=== PATIENT | female | born 1950 | race Caucasian/White ===

== ENCOUNTER → 2021-01-09 11:12 | Outpatient (CLI) | payer MEDICARE, SELFPAY ==
--- NOTE | 2021-01-09 | DI.US.S_ITS ---
PROCEDURE: US THYROID INDICATIONS: THYROID NODULE TECHNIQUE: Real-time scanning was performed of the thyroid gland, with image documentation. COMPARISON: None. FINDINGS: Right: Thyroid lobe measures 5.0 x 1.6 x 1.4 cm, and is homogeneous in echotexture. Colloid cyst measuring 5 mm. Left: Thyroid lobe measures 6.0 x 1.4 x 1.5 cm, and is homogenous in echotexture. Isthmus: 3.3 mm thick. Nodule number: 1 Location: Right superior Size: 0.6 x 0.2 x 0.5 cm. Composition: Spongiform Echogenicity: Predominantly anechoic Shape: wider than tall. Margins: Smooth Echogenic foci: None Total points: 0 ACR TI-RADS category: Benign IMPRESSION: Left colloid cyst and non suspicious right thyroid nodule. No follow-up is warranted. ACR TI-RADS definitions and recommendations: TI-RADS 1 (benign): 0 points. FNA not needed. TI-RADS 2 (not suspicious): 2 points. FNA not needed. TI-RADS 3 (mildly suspicious): 3 points. * FNA if 2.5 cm or larger, follow up if 1.5 cm or larger (at 1, 3, and 5 years). TI-RADS 4 (moderately suspicious): 4-6 points. * FNA if 1.5 cm or larger, follow up if 1 cm or larger (at 1, 2, 3, and 5 years). TI-RADS 5 (highly suspicious): 7 points or more. * FNA if 1 cm or larger, follow up if 0.5 cm or larger (every year for 5 years). Dictated by: Nestor Paz Christina Interpreted: Smith Shipley MD on 01/09/2021 at 11:57 Transcribed by: CATHLEEN on 01/09/2021 at 11:59 Approved by: Smith Shipley M.D. on 01/09/2021 at 16:43
== END ==
PROVIDERS: PCP Internal Medicine; Referring Provider Internal Medicine; Visit Provider Internal Medicine
DX: E04.1 Nontoxic single thyroid nodule (principal)
CPT/HCPCS: 76536

== ENCOUNTER 2021-08-05 14:55 | Observation (INO) | payer MEDICARE, SELFPAY ==
[2021-08-05] VITALS (26 sets, daily range): BP systolic 118–196; BP diastolic 65–91; PULSE 59–79; RESP 14–26; TEMP 36.8–36.9; O2SAT 95–100; BMI 31.6
--- NOTE | 2021-08-05 15:12 | DI.RAD.S_ITS ---
PROCEDURE: XR CHEST 1V INDICATIONS: chest pain TECHNIQUE: One view of the chest was acquired. COMPARISON: None. FINDINGS: Surgical changes and devices: None. Lungs and pleura: On this semiupright portable chest examination, no large pneumothorax or large pleural effusions are seen. No focal infiltrates are seen. Mediastinum: Mediastinal contours appear normal. Heart size is normal. Bones and chest wall: No suspicious bony lesions. Age-appropriate bony degenerative changes are seen. Overlying soft tissues appear unremarkable. IMPRESSION: Unremarkable portable chest for age. Dictated by: Cl Godwin M.D. on 08/05/2021 at 14:43 Approved by: Cl Godwin M.D. on 08/05/2021 at 14:43
[2021-08-05 16:14] LABS: Add Manual Diff / Slide Review NO; Basophils Absolute Auto 0 /uL (0-100); Basophils Percent Auto 0.5 % (0-2); Eosinophils Absolute Auto 100 /uL (0-450); Eosinophils Percent Auto 1.4 % (2-4); Hematocrit 37.5 % (36-46); Hemoglobin 12.8 g/dL (12.0-16.0); Lymphocytes Absolute Auto 1800 /uL (1100-4500); Lymphocytes Percent Auto 24.3 % (25-40); Mean Corpuscular HGB Conc 34.2 % (30-36); Mean Corpuscular Hemoglobin 31.7 PG (26-34); Mean Corpuscular Volume 92.7 fL (80-100); Monocytes Absolute Auto 600 /uL (0-900); Monocytes Percent Auto 7.8 % (3-14); Neutrophils Absolute Auto 5000 /uL (1500-7000); Platelet Count 211 X10^3/uL (150-400); Red Blood Cell Count 4.04 X10^6/uL (4.0-5.2); Red Cell Distribution Width 12.7 % (11.6-14.8); White Blood Cell Count 7.5 X10^3/uL (4.5-11.0)
[2021-08-05 16:24] LABS: Alanine Aminotransferase 19 IU/L (<35); Albumin 4.2 g/dL (3.5-5.0); Albumin Globulin Ratio 1.3 (1.0-2.8); Alkaline Phosphatase 75 U/L (38-126); Aspartate Aminotransferase 24 IU/L (14-36); BUN Creatinine Ratio 21.3 (6-22); Bilirubin Total 0.4 mg/dL (0.2-1.3); Blood Urea Nitrogen 16 mg/dL (7-17); Carbon Dioxide 30 mmol/L (22-32); Chloride 105 mmol/L (98-107); Creatine Kinase 63 U/L (30-135); Estimated Glomerular Filt Rate > 60.0 mL/min (>60); Globulin 3.2 g/dL (1.7-4.1); Glucose 114 mg/dL (80-110); HEMOLYSIS < 15 (0-50); Lipase 48 U/L (23-300); Magnesium 2.1 mg/dL (1.6-2.3); Potassium 3.5 mmol/L (3.4-5.1); Sodium 140 mmol/L (137-145); Total Protein 7.4 g/dL (6.3-8.2)
[2021-08-05 16:35] LABS: Troponin I < 0.012 ng/mL (0.01-0.034)
--- NOTE | 2021-08-05 17:20 | ED_ITS ---
HPI - Chest Pain General Chief Complaint: Chest Pain Stated Complaint: Chest Pain Time Seen by Provider: 08/05/21 17:20 Source: patient Mode of arrival: Wheelchair Limitations: no limitations Limitations: no limitations Review of Systems Review of Systems ROS Unobtainable: All systems reviewed & are unremarkable except as noted in HPI and below Patient History Social History Smoking Status: Former smoker (Stopped when she was 29yo) Smoking Status: Former smoker (Stopped when she was 29yo) alcohol intake frequency: 0-2 drinks per day Substance Use Type: marijuana Exam Initial Vital Signs Initial Vital Signs: Vital Signs Temperature 98.2 F 08/05/21 15:00 Pulse Rate 79 08/05/21 15:00 Respiratory Rate 20 08/05/21 15:00 Blood Pressure 163/87 H 08/05/21 15:00 Pulse Oximetry 99 08/05/21 15:00 Course Orders Ordered: ED Orders 08/05/21 15:12 XR chest 1V Stat EKG-12 Lead Stat 08/05/21 16:03 Complete Blood Count AUTO DIFF Stat Comprehensive Metabolic Panel Stat Lipase Stat Magnesium Stat Troponin & CK Cardiac Panel Stat Vital Signs Vital signs: Vital Signs - 8 hr 08/05/21 15:00 08/05/21 15:50 Temperature 98.2 F Pulse Rate 79 67 Respiratory Rate 20 24 Blood Pressure 163/87 H Pulse Oximetry 99 100 MDM - Chest Pain Lab Data Result diagrams: 08/05/21 16:03 08/05/21 16:03 Labs: Lab Results 08/05/21 08/05/21 Range/Units 16:03 16:03 WBC 7.5 (4.5-11.0) X10^3/uL RBC 4.04 (4.0-5.2) X10^6/uL Hgb 12.8 (12.0-16.0) g/dL Hct 37.5 (36-46) % MCV 92.7 (80-100) fL MCH 31.7 (26-34) PG MCHC 34.2 (30-36) % RDW 12.7 (11.6-14.8) % Plt Count 211 (150-400) X10^3/uL Neut % (Auto) 66.0 (50-75) % Lymph % (Auto) 24.3 L (25-40) % [place] % (Auto) 7.8 (3-14) % Eos % (Auto) 1.4 L (2-4) % Baso % (Auto) 0.5 (0-2) % Neut # (Auto) 5000 (3290-3006) /uL Lymph # (Auto) 1800 (2268-5884) /uL [place] # (Auto) 600 (0-900) /uL Eos # (Auto) 100 (0-450) /uL Baso # (Auto) 0 (0-100) /uL Sodium 140 (137-145) mmol/L Potassium 3.5 (3.4-5.1) mmol/L Chloride 105 (98-107) mmol/L Carbon Dioxide 30 (22-32) mmol/L BUN 16 (7-17) mg/dL Creatinine 0.75 (0.52-1.04) mg/dL Estimated GFR > 60.0 (>60) mL/min BUN/Creatinine Ratio 21.3 (6-22) Glucose 114 H (80-110) mg/dL Calcium 9.0 (8.4-10.2) mg/dL Magnesium 2.1 (1.6-2.3) mg/dL Total Bilirubin 0.4 (0.2-1.3) mg/dL AST 24 (14-36) IU/L ALT 19 (<35) IU/L Alkaline Phosphatase 75 (38-126) U/L Total Creatine Kinase 63 (30-135) U/L CK-MB (CK-2) TNP CK-MB (CK-2) Rel Index TNP Troponin I < 0.012 (0.01-0.034) ng/mL Total Protein 7.4 (6.3-8.2) g/dL Albumin 4.2 (3.5-5.0) g/dL Globulin 3.2 (1.7-4.1) g/dL Albumin/Globulin Ratio 1.3 (1.0-2.8) Lipase 48 (23-300) U/L Imaging Data Chest x-ray: Radiologist's Impression: Launch?[address] [address] XRay Report Signed Patient: Bonny Garcia MR#: [id number] : 1950 Acct:[id number] Age/Sex: 71 / F Date of Service: 08/05/21 Loc: ED Accession Number: [id number] ?? Procedure: XR chest 1V Ordering Provider: Pam Camara D.O. PROCEDURE:? XR CHEST 1V ? INDICATIONS:? chest pain ? TECHNIQUE:? One view of the chest was acquired.? ? COMPARISON:? None. ? FINDINGS:? ? Surgical changes and devices:? None.? ? Lungs and pleura:? On this semiupright portable chest examination, no large pneumothorax or large pleural effusions are seen.? No focal infiltrates are seen.? ? Mediastinum:? Mediastinal contours appear normal.? Heart size is normal.? ? Bones and chest wall:? No suspicious bony lesions.? Age-appropriate bony degenerative changes are seen.? Overlying soft tissues appear unremarkable.? ? ? IMPRESSION:? Unremarkable portable chest for age. ? ? Dictated by: Cl Godwin M.D. on 08/05/2021 at 14:43 ? ? Approved by: Cl Godwin M.D. on 08/05/2021 at 14:43?? ECG Data Attestation: I personally reviewed and interpreted this ECG as follows: Prior ECG tracings: not available for review Interpretation: Sinus rhythm with sinus arrhythmia. Incomplete right bundle-branch. Rate of 60 2p are 132 QRS of 98 QTC of 426. Nonspecific change. No priors for comparison. Discharge Plan Departure Referrals: Archana Manning MD [Primary Care Provider] -
--- NOTE | 2021-08-05 18:02 | ED.CHESTPAIN ---
HPI - Chest Pain General Chief Complaint: Chest Pain Stated Complaint: Chest Pain Time Seen by Provider: 08/05/21 17:20 Source: patient Mode of arrival: Wheelchair Limitations: no limitations History of Present Illness HPI narrative: Patient is a 71-year-old female with history of GERD and un treated hyperlipidemia presenting today with chest discomfort. She noticed yesterday she said it was pretty constant all day yesterday she took her normal acid reflux medication but it did not seem to help. It starts kind of on the left side of her chest and radiates to her left shoulder. It does hurt to take a deep breath at times. However it happens with out taking deep breaths as well. She does have 40 area on her chest that is reproducible to palpation however she says that is not always the pain that she feels. This morning she got up to take the dog for a walk hand was so uncomfortable she had to stop. Her symptoms were relieved completely with. She did to get aspirin through the car prior to arrival. She is comfortable stating that her pain is a 1 currently in the emergency department. She has no prior history of coronary artery disease or hypertension. Her family history both mom and dad had congestive heart failure but no coronary artery disease at young age Related Data Allergies Allergy/AdvReac Type Severity Reaction Status Date / Time No Known Drug Allergies Allergy Verified 08/05/21 20:48 Review of Systems Review of Systems Narrative: GENERAL: Denies chills, fatigue, malaise, fever, sweats, travel HEENT: Denies sinus pain, ear pain, sore throat, difficulty swallowing, neck pain RESPIRATORY: Denies dyspnea, cough, wheezing, hemoptysis, sputum. CARDIOVASCULAR: See HPI GASTROINTESTINAL: Denies nausea, vomiting, abdominal pain, diarrhea, constipation, melena. : Denies dysuria, frequency, incontinence, hematuria, urinary retention, flank pain. MUSCULOSKELETAL: Denies weakness, joint pain, or bony pain SKIN: No rash, no erythema, no pruritus NEUROLOGIC: Denies weakness, dizziness, headache, numbness, change in speech, confusion PSYCHIATRIC: No concerning psychosocial issues. 12 point review of systems is negative except for those stated above and HPI Patient History Social History household members: spouse Smoking Status: Never smoker alcohol intake: former Smoking Status: Never smoker alcohol intake frequency: 0-2 drinks per day Substance Use Type: marijuana Exam Initial Vital Signs Initial Vital Signs: Vital Signs Temperature 98.2 F 08/05/21 15:00 Pulse Rate 79 08/05/21 15:00 Respiratory Rate 20 08/05/21 15:00 Blood Pressure 163/87 H 08/05/21 15:00 Pulse Oximetry 99 08/05/21 15:00 GENERAL: Alert 71-year-old man and in no acute distress. HEENT: Head atraumatic,EOMI, pupils reactive, face symmetric, [moist] mucous membranes CARDIOVASCULAR: Regular rate and rhythm without murmurs, rubs or gallops. RESPIRATORY: Breath sounds equal bilaterally, no wheezes rales or rhonchi. ABDOMEN: Soft, nontender. Normoactive bowel sounds all 4 quadrants. No guarding or rebound. EXTREMITIES: Normal range of motion, no clubbing or edema. Neurovascularly intact NEUROLOGICAL: Alert and oriented x4.Normal gait and speech. SKIN: Warm, dry, no laceration, no petechiae, no rashes or lesions. Scores HEART Score Heart Score history: Highly Suspicious Heart Score EKG: Normal Heart Score Age: > or = 65 years old Heart Score risk factors: 1-2 risk factors Heart Score troponin: < or = to normal limit Heart Score Total: 5 Course Orders Ordered: ED Orders 08/05/21 16:03 Complete Blood Count AUTO DIFF Stat Comprehensive Metabolic Panel Stat Lipase Stat Magnesium Stat Troponin & CK Cardiac Panel Stat 08/05/21 17:42 COVID19 -Nasal swab/Pre-Proc Stat 08/05/21 18:15 Trop I [Troponin I] Stat 08/05/21 18:16 EKG-12 Lead Stat Acetaminophen (Acetaminophen 325 Mg Tablet) 650 mg PO Q6HR PRN PRN Reason: Fever/Mild Pain (1-3) Aspirin (Aspirin Ec 81 Mg Tablet) 81 mg PO DAILY [facility] Calcium Carbonate (Calcium Carbonate 500 Mg Tab) 1,000 mg PO Q4HR PRN PRN Reason: Dyspepsia Enoxaparin Sodium (Enoxaparin 40 Mg/0.4 Ml Syringe) 40 mg SUBCUT DAILY [facility] Morphine Sulfate (Morphine 2 Mg/Ml Inj) 2 mg IV Q5MIN PRN PRN Reason: Chest Pain Naloxone HCl (Naloxone 0.4 Mg/Ml Vial) 0.2 mg IV Q2MIN PRN PRN Reason: Opiate Reversal Nitroglycerin (Nitroglycerin 0.4 Mg Sl Tab) 0.4 mg SL [id number] PRN PRN Reason: Chest Pain Ondansetron HCl (Ondansetron 4 Mg/2 Ml Inj) 4 mg IV Q8HR PRN PRN Reason: Nausea And Vomiting Discontinued Medications Ketorolac Tromethamine (Ketorolac 30 Mg/Ml Vial) 15 mg IV NOW ONE Stop: 08/05/21 18:15 Last Admin: 08/05/21 18:21 Dose: 15 mg Documented by: PERRY Nitroglycerin (Nitroglycerin 0.4 Mg Sl Tab) 0.4 mg SL NOW ONE Stop: 08/05/21 18:15 Last Admin: 08/05/21 18:22 Dose: 0.4 mg Documented by: PERRY Vital Signs Vital signs: Vital Signs - 8 hr 08/05/21 16:38 08/05/21 16:40 08/05/21 17:00 Pulse Rate 68 63 63 Respiratory Rate 14 26 H Blood Pressure 154/77 H 161/85 H Pulse Oximetry 100 95 08/05/21 17:30 08/05/21 17:31 08/05/21 17:40 Pulse Rate 60 60 60 Respiratory Rate 14 14 17 Blood Pressure 196/87 H 137/72 Pulse Oximetry 97 97 97 08/05/21 17:50 08/05/21 18:00 08/05/21 18:10 Pulse Rate 62 70 66 Respiratory Rate 23 24 18 Blood Pressure 138/85 125/76 181/86 H Pulse Oximetry 96 97 100 08/05/21 18:20 08/05/21 18:22 08/05/21 18:30 Pulse Rate 59 L 62 72 Respiratory Rate 14 24 Blood Pressure 172/76 H 173/76 H 155/72 H Pulse Oximetry 100 97 08/05/21 18:41 08/05/21 18:50 08/05/21 19:38 Pulse Rate 64 67 67 Respiratory Rate 16 24 Blood Pressure 132/65 131/70 Pulse Oximetry 96 98 08/05/21 19:39 08/05/21 19:40 08/05/21 19:50 Pulse Rate 64 59 L 64 Respiratory Rate 19 Blood Pressure 149/77 H 153/73 H 153/81 H Pulse Oximetry 99 100 100 08/05/21 20:00 Pulse Rate 65 Respiratory Rate 22 Blood Pressure 164/91 H Pulse Oximetry 100 MDM - Chest Pain Lab Data Result diagrams: 08/05/21 16:03 08/05/21 16:03 Labs: Lab Results 08/05/21 08/05/21 08/05/21 Range/Units 16:03 16:03 17:42 WBC 7.5 (4.5-11.0) X10^3/uL RBC 4.04 (4.0-5.2) X10^6/uL Hgb 12.8 (12.0-16.0) g/dL Hct 37.5 (36-46) % MCV 92.7 (80-100) fL MCH 31.7 (26-34) PG MCHC 34.2 (30-36) % RDW 12.7 (11.6-14.8) % Plt Count 211 (150-400) X10^3/uL Neut % (Auto) 66.0 (50-75) % Lymph % (Auto) 24.3 L (25-40) % [place] % (Auto) 7.8 (3-14) % Eos % (Auto) 1.4 L (2-4) % Baso % (Auto) 0.5 (0-2) % Neut # (Auto) 5000 (6383-4915) /uL Lymph # (Auto) 1800 (7967-8960) /uL [place] # (Auto) 600 (0-900) /uL Eos # (Auto) 100 (0-450) /uL Baso # (Auto) 0 (0-100) /uL Sodium 140 (137-145) mmol/L Potassium 3.5 (3.4-5.1) mmol/L Chloride 105 (98-107) mmol/L Carbon Dioxide 30 (22-32) mmol/L BUN 16 (7-17) mg/dL Creatinine 0.75 (0.52-1.04) mg/dL Estimated GFR > 60.0 (>60) mL/min BUN/Creatinine Ratio 21.3 (6-22) Glucose 114 H (80-110) mg/dL Calcium 9.0 (8.4-10.2) mg/dL Magnesium 2.1 (1.6-2.3) mg/dL Total Bilirubin 0.4 (0.2-1.3) mg/dL AST 24 (14-36) IU/L ALT 19 (<35) IU/L Alkaline Phosphatase 75 (38-126) U/L Total Creatine Kinase 63 (30-135) U/L CK-MB (CK-2) TNP CK-MB (CK-2) Rel Index TNP Troponin I < 0.012 (0.01-0.034) ng/mL Total Protein 7.4 (6.3-8.2) g/dL Albumin 4.2 (3.5-5.0) g/dL Globulin 3.2 (1.7-4.1) g/dL Albumin/Globulin Ratio 1.3 (1.0-2.8) Lipase 48 (23-300) U/L SARS-CoV-2 (PCR) Negative (Negative) 08/05/21 Range/Units 18:15 WBC (4.5-11.0) X10^3/uL RBC (4.0-5.2) X10^6/uL Hgb (12.0-16.0) g/dL Hct (36-46) % MCV (80-100) fL MCH (26-34) PG MCHC (30-36) % RDW (11.6-14.8) % Plt Count (150-400) X10^3/uL Neut % (Auto) (50-75) % Lymph % (Auto) (25-40) % [place] % (Auto) (3-14) % Eos % (Auto) (2-4) % Baso % (Auto) (0-2) % Neut # (Auto) (3108-5999) /uL Lymph # (Auto) (4886-3956) /uL [place] # (Auto) (0-900) /uL Eos # (Auto) (0-450) /uL Baso # (Auto) (0-100) /uL Sodium (137-145) mmol/L Potassium (3.4-5.1) mmol/L Chloride (98-107) mmol/L Carbon Dioxide (22-32) mmol/L BUN (7-17) mg/dL Creatinine (0.52-1.04) mg/dL Estimated GFR (>60) mL/min BUN/Creatinine Ratio (6-22) Glucose (80-110) mg/dL Calcium (8.4-10.2) mg/dL Magnesium (1.6-2.3) mg/dL Total Bilirubin (0.2-1.3) mg/dL AST (14-36) IU/L ALT (<35) IU/L Alkaline Phosphatase (38-126) U/L Total Creatine Kinase (30-135) U/L CK-MB (CK-2) CK-MB (CK-2) Rel Index Troponin I < 0.012 (0.01-0.034) ng/mL Total Protein (6.3-8.2) g/dL Albumin (3.5-5.0) g/dL Globulin (1.7-4.1) g/dL Albumin/Globulin Ratio (1.0-2.8) Lipase (23-300) U/L SARS-CoV-2 (PCR) (Negative) Imaging Data Chest x-ray: Radiologist's Impression: PROCEDURE:? XR CHEST 1V ? INDICATIONS:? chest pain ? TECHNIQUE:? One view of the chest was acquired.? ? COMPARISON:? None. ? FINDINGS:? ? Surgical changes and devices:? None.? ? Lungs and pleura:? On this semiupright portable chest examination, no large pneumothorax or large pleural effusions are seen.? No focal infiltrates are seen.? ? Mediastinum:? Mediastinal contours appear normal.? Heart size is normal.? ? Bones and chest wall:? No suspicious bony lesions.? Age-appropriate bony degenerative changes are seen.? Overlying soft tissues appear unremarkable.? ? ? IMPRESSION:? Unremarkable portable chest for age. ? ? Dictated by: Cl Godwin M.D. on 08/05/2021 at 14:43 ? ? Approved by: Cl Godwin M.D. on 08/05/2021 at 14:43 ? ECG Data Interpretation: Normal sinus rhythm rate 62 OR interval 132 QRS [address] changes but T-wave inversion noted in lead 3 only no priors to compare EKG 2. Sinus rhythm rate 60 persistent T-wave inversion noted in lead [address] changes MDM Narrative Medical decision making narrative: Patient's symptoms is of worsening chest discomfort with exertion are concerning for cardiac a. Some of it does seem musculoskeletal however this is not all of her pain. She has 2- troponins EKGs that do show a T-wave inversion out priors to compare. Patient got up to use the restroom she can experience chest discomfort all across her epigastric area is and up into her chest which resolved with rest. She was given nitroglycerin she took aspirin prior to arrival gave her Toradol possible musculoskeletal issue as well. Calin Verduzco is updated on symptoms test results and agrees with observation Discharge Plan Departure Patient Disposition: Admitted as Observation Clinical Impression: Chest pain Admit Date/Time: 08/05/21 20:03 Admit Provider: Kirsten Layton
[2021-08-05 18:05] LABS: COVID19 -Nasal RAPID Negative (Negative)
[2021-08-05] MEDS: KETOROLAC 30 MG/ML VIAL 15 MG IV (18:21)
[2021-08-05] MEDS: NITROGLYCERIN 0.4 MG SL TAB SL (18:22)
[2021-08-05 18:54] LABS: Troponin I < 0.012 ng/mL (0.01-0.034)
[2021-08-06 00:35] VITALS: O2SAT 98
[2021-08-06 04:00] VITALS: O2SAT 98
[2021-08-06 05:40] VITALS: O2SAT 99
--- NOTE | 2021-08-06 05:49 | PM.HP.1 ---
History of Present Illness History of Present Illness Date Patient Seen: 08/05/21 Time Patient Seen: 20:43 Chief complaint: Chest Pain, Sent from [facility] Narrative: Bonny Garcia is a 71-year-old female? with history of GERD and un-treated hyperlipidemia presented to the ED with chest pain.?Patient had chest pain constant all day yesterday, without improvement from acid reflux medication. Started 2 days ago on the left side of her chest as a pressure, occansional dizziness, LEVINE, swelling of the left foot and pain radiating to her left shoulder.? It worsens with deep breath at times.? Her chest pain is reproducible to palpation occansionally. The chest pressure became intolerable during her regular morning walk, forcing her to stop, at which point CP was relieved with rest.? In the ED her pain was 1/10, and she was hemodynamically stable. Patient denies prior history of cardiac disease, coronary artery disease or hypertension.? Both parents had congestive heart failure but no coronary artery disease at young age. Upon admit patient currently denies chest pain, shortness of breath, abdominal pain, nausea, vomiting, diarrhea, chills, fever, body aches, cough, respiratory symptoms, weakness, numbness, tingling, headache, changes in vision, recent illness injury or trauma. Patient was experiencing minor dizziness with positional changes. Though at the time admit interview patient was walking around her room comfortably, stable and in no distress. Upon admit patient's vitals she was afebrile, mildly hypertensive without a diagnosis of hypertension 164/91, HR 65, R 22, O2 saturation 100%. Patient's entire blood work was within normal limits to include CBC CMP liver panel, troponin x2 were within normal limits, patient's chest x-ray demonstrated no acute cardiopulmonary processes, patient's EKG demonstrated normal sinus rhythm with a rate of 62 with sinus arrhythmia, incomplete right bundle tejal block-I personally reviewed EKG, patient had a heart score: 4. Patient admitted for chest pain rule out and risk stratification. Patient History Medical History (Updated 08/06/21 @ 06:03 by DARLINE Quintanilla) Melanoma Osteopenia Surgical History (Updated 08/06/21 @ 06:03 by DARLINE Quintanilla) History of tonsillectomy Family & Social History Family History Mother Congestive heart failure Father Congestive heart failure Social History: household members spouse Prior Living Arrangements House Safety & Behavioral: Feels Safe in Current Yes Environment Been Physically Hurt or No Threatened By a Person Suicidal Ideation Description None Suicide Plan Description No Plan Tobacco & Substance use: Smoking Status Never smoker alcohol intake former alcohol intake frequency 0-2 drinks per day Substance Use Type marijuana Meds Home Medications and Allergies Allergies Allergy/AdvReac Type Severity Reaction Status Date / Time No Known Drug Allergies Allergy Verified 08/05/21 20:48 Review of Systems Review of Systems Narrative: All 12 point systems reviewed with the patient and are negative except otherwise documented. Exam Vital Signs (past 8 hours): - 08/05/21 22:37 08/05/21 23:10 08/06/21 00:35 Pulse Rate 64 Pulse Rate [Orthostatic Lying] 60 Pulse Rate [Orthostatic Sitting] 61 Pulse Rate [Orthostatic Standing] 71 Respiratory Rate 16 Blood Pressure [Orthostatic Lying] 139/76 Blood Pressure [Orthostatic Sitting] 123/68 Blood Pressure [Orthostatic Standing] 118/69 Pulse Oximetry 98 98 Oxygen Delivery Method Room Air Oxygen Flow Rate 0 Narrative Exam Narrative: General: Patient is a well-developed, well-nourished in no distress at this time. HEENT: Normocephalic, atraumatic, extraocular muscles intact, oral pharynx is clear and mucous membranes are moist. Neck is supple and symmetric, trachea is midline, no adenopathy, no thyroid enlargement, nontender, no masses palpated. Negative for JVD Chest: Normal AP diameter and contour without kyphoscoliosis, no nasal flaring, retractions, or tachypneic labored Lungs: Auscultation of all lung kim are clear without adventitious sounds, wheezes, rhonchi, or rales. Cardio: S1 & S2 with regular rate and rhythm without murmur, rubs, or gallops, no carotid bruit, no cardiac pulsations present. Abdomen: Soft nontender, negative for organomegaly, or masses. Bowel sounds are present in all 4 quadrants without guarding or rebound, no CVA tenderness. Musculoskeletal: Muscle strength and tone are equal within normal limits, no deformity, crepitus, effusions, cyanosis, clubbing or edema present. Full range of motion intact radial and pedal pulses are normal. Skin: Warm dry and intact without rashes, ulcerations or petechiae. Neuro: Alert and orientated x3, strength is +5/5 in all extremities, sensation to touch intact, no gross deficits noted of cranial nerves. Psych: Patient has a well-kept appearance, appropriate affect, mental status attitude thought context and judgment are appropriate for age. Objective Labs Result Diagrams: 08/05/21 16:03 08/05/21 16:03 Labs: Laboratory Results - last 24 hr 08/05/21 08/05/21 08/05/21 16:03 16:03 17:42 WBC 7.5 RBC 4.04 Hgb 12.8 Hct 37.5 MCV 92.7 MCH 31.7 MCHC 34.2 RDW 12.7 Plt Count 211 Neut % (Auto) 66.0 Lymph % (Auto) 24.3 L Randall % (Auto) 7.8 Eos % (Auto) 1.4 L Baso % (Auto) 0.5 Neut # (Auto) 5000 Lymph # (Auto) 1800 Randall # (Auto) 600 Eos # (Auto) 100 Baso # (Auto) 0 Sodium 140 Potassium 3.5 Chloride 105 Carbon Dioxide 30 BUN 16 Creatinine 0.75 Estimated GFR > 60.0 BUN/Creatinine Ratio 21.3 Glucose 114 H Calcium 9.0 Magnesium 2.1 Total Bilirubin 0.4 AST 24 ALT 19 Alkaline Phosphatase 75 Total Creatine Kinase 63 CK-MB (CK-2) TNP CK-MB (CK-2) Rel Index TNP Troponin I < 0.012 Total Protein 7.4 Albumin 4.2 Globulin 3.2 Albumin/Globulin Ratio 1.3 Lipase 48 SARS-CoV-2 (PCR) Negative 08/05/21 18:15 WBC RBC Hgb Hct MCV MCH MCHC RDW Plt Count Neut % (Auto) Lymph % (Auto) Randall % (Auto) Eos % (Auto) Baso % (Auto) Neut # (Auto) Lymph # (Auto) Randall # (Auto) Eos # (Auto) Baso # (Auto) Sodium Potassium Chloride Carbon Dioxide BUN Creatinine Estimated GFR BUN/Creatinine Ratio Glucose Calcium Magnesium Total Bilirubin AST ALT Alkaline Phosphatase Total Creatine Kinase CK-MB (CK-2) CK-MB (CK-2) Rel Index Troponin I < 0.012 Total Protein Albumin Globulin Albumin/Globulin Ratio Lipase SARS-CoV-2 (PCR) Assessment & Plan Assessment & Plan narrative: Bonny Garcia is a 71-year-old female? with history of GERD and un-treated hyperlipidemia presented to the ED with chest pain. Patient takes no medications is admitted with elevated blood pressure without the diagnosis of hypertension, obesity, untreated hyperlipidemia, and a heart score of 4. 1. Chest pressure, radiating to left side of neck, intermittent, acute, present on admission -patient admitted for risk stratification -trend troponins -ASA -lipid panel ordered -stress test and echo ordered 2. Elevated blood pressure without the diagnosis of hypertension, acute, present on admission -monitor blood pressure overnight -orthostatics Q shift -initial blood pressure 164/91 3. Obesity as evidence by BMI of 31.6, acute on chronic, present on admission -dietary consult was placed Code status: Full Surrogate decision maker: Spouse Eric Garcia COVID PCR: Negative COVID vaccination: Unknown DVT/VTE prophylaxis: Lovenox and SCDs Disposition: Patient admitted for observation expected length of stay less than 2 midnights I have utilized all available immediate resources to obtain, update, or review the patient's current medications. I confirmed that the patient's advanced care plan is present, Code status is documented and/or surrogate decision maker is listed in the patient's medical record. Time Spent With Patient Critical Care time: I spent a total of [] minutes of critical care time on this patient's care today; this time is exclusive of procedural time.
[2021-08-06 05:52] VITALS: BP 119/61; PULSE 53; RESP 16; TEMP 36.2; O2SAT 99
[2021-08-06 06:12] LABS: Cholesterol 179 mg/dL (140-199); HDL Cholesterol 51 mg/dL (40-60); LDL Cholesterol Calculated 102 mg/dL (<100); Triglycerides 128 mg/dL (35-150)
[2021-08-06 06:22] LABS: NT-proBNP (BNP-Adult 18+) 30 pg/mL (<125); Troponin I < 0.012 ng/mL (0.01-0.034)
[2021-08-06 07:45] VITALS: BP 113/78; BP 122/71; BP 133/70; PULSE 56; PULSE 59; PULSE 70; RESP 21; TEMP 36.2; O2SAT 99
[2021-08-06 08:00] VITALS: O2SAT 97
[2021-08-06] MEDS: ASPIRIN EC 81 MG TABLET PO (09:20)
[2021-08-06] MEDS: ENOXAPARIN 40 MG/0.4 ML SYRINGE SUBCUT (09:20)
--- NOTE | 2021-08-06 09:27 | CM.DANOTE ---
DCP: Case received, EMR reviewed and met with patient. Introduced self and role. Was able to obtain information regarding patient's baseline activity status prior to hospitalization. DCP assessment completed with information currently available. Patient is a 71 year old female who admitted yesterday evening to the care of the hospitalist team. PCP: Dr. Archana Manning. Payer: confirmed: Medicare/[employer]ARP. Patient came to the hospital via private vehicle secondary to having chest pain. According to notes, patient had chest pain yesterday, after taking acid reflux medication, no improvement. She had gone for a walk, pain had gotten worse. Patient was admitted for chest pressure, risk stratification. Met with patient in her room. She was sitting up in bed, pleasant, alert and oriented. She resides in [place] with her spouse, Eric. She is independent at her baseline, she indicated, she drove herself here. She is originally from [place], [place], and moved here when her mother had gotten ill, and . She is currently living in what was her mother's house. P: DCP to continue to follow. She will be having an echo today, and could possibly go home today. Emilia Pepper RN/Public Health Specialist Discharge Planning/Care Management CM Discharge Assessment Start: 08/06/21 09:25 Freq: Status: Active Protocol: Document 08/06/21 09:25 (Rec: 08/06/21 09:26 [id number]) Discharge Planning Assessment Assigned City Editor Emilia Pepper RN/Public Health Specialist Advance Directives? No History Provided By Patient,Medical Record Prior Living Arrangements House Household Members spouse Type of transporation used prior to Drives own vehicle admit Independent with ADL's Yes Is patient alert and oriented? Yes Caregiver for Another No Barriers to Discharge No Discharge Plan Home Transportation Arrangement Spouse Referrals Initiated None needed Whiteboard Updated in Patient Room with Yes name and ext. # of City Editor Review Status In Process Next Review Type Continued Stay Review
--- NOTE | 2021-08-06 10:37 | PC.NURSE ---
Day shift - Pt left unit at 1037am via wheelchair to personal car. Pt is alert and oriented x4. Pt verbalizes understanding of D/C info. Pt verbalizes understanding of new prescription of 81mg of aspirin and how to administer. Pt verbalizes understanding of SXS of chest pain and stroke and when to call 911, Pt understands also to call PCP and make appt for stress test per Dr. Bravo recommendation and Pt wishes to take stress test outpatient.
--- NOTE | 2021-08-06 14:02 | PM.DS.1 ---
History of Present Illness History of Present Illness Chief complaint: Chest Pain, Sent from [facility] Narrative: Bonny Garcia is a 71-year-old female? with history of GERD and un-treated hyperlipidemia presented to the ED with chest pain.?Patient had chest pain constant all day yesterday, without improvement from acid reflux medication. Started 2 days ago on the left side of her chest as a pressure, occansional dizziness, LEVINE, swelling of the left foot and pain radiating to her left shoulder.? It worsens with deep breath at times.? Her chest pain is reproducible to palpation occansionally. The chest pressure became intolerable during her regular morning walk, forcing her to stop, at which point CP was relieved with rest.? In the ED her pain was 1/10, and she was hemodynamically stable.? Patient denies prior history of cardiac disease, coronary artery disease or hypertension.? Both parents had congestive heart failure but no coronary artery disease at young age.? Upon admit patient currently denies chest pain, shortness of breath, abdominal pain, nausea, vomiting, diarrhea, chills, fever, body aches, cough, respiratory symptoms, weakness, numbness, tingling, headache, changes in vision, recent illness injury or trauma.? Patient was experiencing minor dizziness with positional changes.? Though at the time admit interview patient was walking around her room comfortably, stable and in no distress. Upon admit patient's vitals she was afebrile, mildly hypertensive without a diagnosis of hypertension 164/91, HR 65, R 22, O2 saturation 100%.? Patient's entire blood work was within normal limits to include CBC CMP liver panel, troponin x2 were within normal limits, patient's chest x-ray demonstrated no acute cardiopulmonary processes, patient's EKG demonstrated normal sinus rhythm with a rate of 62 with sinus arrhythmia, incomplete right bundle tejal block-I personally reviewed EKG, patient had a heart score:? 4.? Patient admitted for chest pain rule out and risk stratification.? Discharge Providers Provider Date of admission: 08/05/21 20:03 Discharge Date: 08/06/21 Primary care physician: Archana Manning MD Consults: 08/05/21 20:42 Consult to Dietitian, Adult Routine Comment: Reason For Exam: BMI 31.6 Discharge provider: James Bravo MD Summary Hospital Course Discharge Diagnosis: 1. Acute chest pressure 2. Elevated blood pressure Hospital Course: Ms. Garcia came in to the hospital with chest pressure. She had nonspecific EKG changes. She had troponins that were negative. She felt improved but did continue to have intermittent chest pressure. No shortness of breath. She was ordered for aspirin. Lipids checked and were reassuring. She was offered to stay in the hospital for stress test, was recommended stress ECHO. She preferred to have this done as an outpatient. She was recommended to start a statin. She decided to not to start a statin currently, and she was recommended to follow up with her PCP to discuss the benefits/risks for her further. Exam Vital Signs (past 8 hours): - 08/06/21 07:45 08/06/21 08:00 Temperature 97.2 F L Pulse Rate 56 L Pulse Rate [Orthostatic Lying] 70 Pulse Rate [Orthostatic Sitting] 59 L Pulse Rate [Orthostatic Standing] 56 L Respiratory Rate 21 Blood Pressure 133/70 Blood Pressure [Orthostatic Lying] 113/78 Blood Pressure [Orthostatic Sitting] 122/71 Blood Pressure [Orthostatic Standing] 133/70 Pulse Oximetry 99 97 Oxygen Delivery Method Room Air Oxygen Flow Rate 0 Narrative Exam Narrative: GEN: no acute distress CV: regular rate and rhythm, no murmurs PULM: clear bilaterally EXT: no edema Objective Labs Result Diagrams: 08/05/21 16:03 08/05/21 16:03 Labs: Laboratory Results - last 24 hr 08/05/21 08/05/21 08/05/21 16:03 16:03 17:42 WBC 7.5 RBC 4.04 Hgb 12.8 Hct 37.5 MCV 92.7 MCH 31.7 MCHC 34.2 RDW 12.7 Plt Count 211 Neut % (Auto) 66.0 Lymph % (Auto) 24.3 L Pender % (Auto) 7.8 Eos % (Auto) 1.4 L Baso % (Auto) 0.5 Neut # (Auto) 5000 Lymph # (Auto) 1800 Pender # (Auto) 600 Eos # (Auto) 100 Baso # (Auto) 0 Sodium 140 Potassium 3.5 Chloride 105 Carbon Dioxide 30 BUN 16 Creatinine 0.75 Estimated GFR > 60.0 BUN/Creatinine Ratio 21.3 Glucose 114 H Calcium 9.0 Magnesium 2.1 Total Bilirubin 0.4 AST 24 ALT 19 Alkaline Phosphatase 75 Total Creatine Kinase 63 CK-MB (CK-2) TNP CK-MB (CK-2) Rel Index TNP Troponin I < 0.012 NT-Pro-B Natriuret Pep Total Protein 7.4 Albumin 4.2 Globulin 3.2 Albumin/Globulin Ratio 1.3 Triglycerides Cholesterol LDL Cholesterol, Calc HDL Cholesterol Lipase 48 SARS-CoV-2 (PCR) Negative 08/05/21 08/06/21 18:15 05:22 WBC RBC Hgb Hct MCV MCH MCHC RDW Plt Count Neut % (Auto) Lymph % (Auto) Pender % (Auto) Eos % (Auto) Baso % (Auto) Neut # (Auto) Lymph # (Auto) Pender # (Auto) Eos # (Auto) Baso # (Auto) Sodium Potassium Chloride Carbon Dioxide BUN Creatinine Estimated GFR BUN/Creatinine Ratio Glucose Calcium Magnesium Total Bilirubin AST ALT Alkaline Phosphatase Total Creatine Kinase CK-MB (CK-2) CK-MB (CK-2) Rel Index Troponin I < 0.012 < 0.012 NT-Pro-B Natriuret Pep 30 Total Protein Albumin Globulin Albumin/Globulin Ratio Triglycerides 128 Cholesterol 179 LDL Cholesterol, Calc 102 H HDL Cholesterol 51 Lipase SARS-CoV-2 (PCR) [facility] Medical History (Updated 08/06/21 @ 06:03 by DARLINE Quintanilla) Melanoma Osteopenia Surgical History (Updated 08/06/21 @ 06:03 by DARLINE Quintanilla) History of tonsillectomy Family History Mother Congestive heart failure Father Congestive heart failure Social History household members: spouse Smoking Status: Never smoker alcohol intake: former Discharge Plan Discharge Plan Patient Disposition: Home Provider Discharge Comment: Ms. Garcia did come in to the hospital with chest pain. She did not have a heart attack. There is some concern she should have cardiac disease and she is recommended to get a stress echo. She prefers to have this arranged as an outpatient. She will be discharged with aspirin, and will consider taking a statin and should discuss this with her PCP. Discharge orders & Medications Prescriptions: New aspirin 81 mg Tablet,Delayed Release (Dr/Ec) 81 mg PO DAILY Qty: 30 0RF Follow up/Referrals: Archana Maninng MD [Primary Care Provider] - Diet/Activity/Treatments Diet: Regular Visit Report/Discharge Packet Instructions: Cardiac Stress Test, DI for Atypical Chest Pain Discharge Data Primary Care Provider: Archana Manning Attending Provider: Kirsten Layton
== END 2021-08-06 10:42 | disposition home or self-care (01) ==
LOC: ED 17:49 → AC 20:04
PROVIDERS: Emergency Medicine; Admitting Provider Nurse Practitioner Family; Emergency Provider Emergency Medicine; PCP Internal Medicine; Referring Provider Emergency Medicine; Visit Provider Nurse Practitioner Family
DX: R07.89 Other chest pain (principal); R03.0 Elevated blood-pressure reading, without diagnosis of hypertension; K21.9 Gastro-esophageal reflux disease without esophagitis; E78.5 Hyperlipidemia, unspecified; Z20.822 Contact with and (suspected) exposure to COVID-19
CPT/HCPCS: 36415; 71045; 80053; 80061; 82550; 83690; 83735; 83880; 84484; 85025; 87635; 93005; 93010; 94760; 96372; 96374; 99284; C9803; G0378; J1650; J1885

== ENCOUNTER → 2021-08-14 15:56 | Outpatient (CLI) | payer MEDICARE, SELFPAY ==
[2021-08-05 20:44] VITALS: BMI 31.6
--- NOTE | 2021-08-14 15:58 | DI.ECHO.S_ITS ---
[facility] +---------+ [facility] +---------+ : : [address] [place] : : : : [id number] : : : : Phone: [phone] Echocardiogram Report + + :Name: MARCY SANZ Study Date: 08/14/2021 Height: 62 in : :[facility] ReadingLocation: Weight: 173 lb : : Gender: Female BSA: 1.8 m2 : :: 1950 Age: 71 yrs BP: 135/82 mmHg: :Reason For Study: CHEST PAIN : :Ordering Physician: CHRISTINE, : :ANDREI Performed By: Anna Echeverria : :Referring: ANDREI DONAHUE : + + Interpretation Summary 1) Normal left ventricular thickness, size, wall motion, and systolic function (EF 60-65%). 2) Normal right ventricular size and function. 3) No significant valvular abnormalities. 4) No prior Echo available for comparison. Procedure: A two-dimensional transthoracic echocardiogram with color flow and Doppler was performed. The study quality was technically adequate. There is no prior echocardiogram noted for this patient. The patient was in sinus rhythm with heart rates between 58-66 bpm during the exam. Left Ventricle: The left ventricle is normal in size and wall thickness. The ejection fraction is estimated to be 60-65%. Left ventricular systolic function appears normal without focal wall motion abnormalities. Diastolic parameters suggest a relaxation abnormality of the left ventricle, consistent with probable normal filling pressures. Right Ventricle: The right ventricle is normal in size and function. Atria: The left atrial size is normal. Right atrial size is normal. There is no Doppler evidence for an interatrial shunt. Mitral Valve: The mitral valve is normal in structure and function. There is trace mitral regurgitation. Aortic Valve: The aortic valve is trileaflet. The aortic valve opens well. There is no aortic valve stenosis. No aortic regurgitation is present. Tricuspid Valve: The tricuspid valve is normal in structure and function. There is mild tricuspid regurgitation. The right ventricular systolic pressure is estimated to be at least 27 mmHg based on an estimated right atrial pressure of 3 mm Hg. Pulmonic Valve: The pulmonic valve leaflets are thin and pliable; valve motion is normal. There is trace pulmonic regurgitation. Great Vessels: The aortic root is normal size. The dimensions of the ascending aorta are normal. The IVC is of normal diameter and collapses greater than 50% with a sniff. This suggests a low right atrial pressure of 3 mm Hg. Pericardium/ Pleura There is no pericardial effusion. There is no pleural effusion. MMode/2D Measurements & Calculations LVIDd: 4.7 cm LVOT diam: 2.0 cm LVIDs: 3.1 cm Ao root diam: 3.4 cm FS: 34.0 % asc Aorta Diam: 3.3 cm IVSd: 0.75 cm Ao Arch Diam (Prox Trans): 2.9 cm LVPWd: 0.75 cm LV morse. diameter/BSA (cm/m^2): 2.6 LV sys. diameter/BSA (cm/m^2): 1.7 LA A2 area: 20.9 cm2 RA long axis: 4.9 cm LA A4 area: 16.2 cm2 RA area: 13.4 cm2 LA length (vol): 5.3 cm RA vol: 31.1 ml LA vol: 54.0 ml RA : 17.3 ml/m2 LA vol index: 30.0 ml/m2 IVC diam: 1.8 cm RVD1 (basal): 3.1 cm TAPSE: 2.0 cm Doppler Measurements & Calculations Ao V2 max: 155.6 cm/sec LVOT Max Wilbur: 104.2 cm/sec Ao V2 mean: 97.5 cm/sec LV V1 max P.3 mmHg Ao max P.7 mmHg LV V1 VTI: 23.5 cm Ao mean P.6 mmHg NASEEM(I,D): 2.1 cm2 Ao V2 VTI: 33.0 cm NASEEM(V,D): 2.0 cm2 sev ratio: 0.71 NASEEM indexed to BSA (cm^2/m^2): 1.2 MV E max wilbur: 95.2 cm/sec TR max wilbur: 247.0 cm/sec MV A max wilbur: 73.2 cm/sec TR max P.4 mmHg MV E/A: 1.3 PA V2 max: 81.1 cm/sec Med Peak E' Wilbur: 7.5 cm/sec PA V2 mean: 57.0 cm/sec E/E' med: 12.7 PA mean P.5 mmHg Lat Peak E' Wilbur: 6.7 cm/sec PA pr(Accel): 17.3 mmHg E/E' lat: 14.2 E/e' average: 13.5 MV dec time: 0.22 sec SVLVOT): 70.6 ml Reading Physician:05:18 PM
== END ==
PROVIDERS: PCP Internal Medicine; Referring Provider Internal Medicine Cardiovascular Disease; Visit Provider Internal Medicine Cardiovascular Disease
DX: R07.9 Chest pain, unspecified (principal); I07.1 Rheumatic tricuspid insufficiency
CPT/HCPCS: 93306

== ENCOUNTER → 2023-05-08 12:52 | Outpatient (CLI) | payer MEDICARE, SELFPAY ==
[2021-08-05 20:44] VITALS: BMI 31.6
--- NOTE | 2023-05-08 13:56 | DI.MRI.S_ITS ---
PROCEDURE: MR LUMBAR SPINE WO CON INDICATIONS: SPINAL STENOSIS TECHNIQUE: Noncontrast sagittal T1 spin echo and T2 fast echo, sagittal STIR, and T2 fast spin echo through the lumbar spine. In cases with scoliosis, additional coronal T2 fast spin echo may be performed. COMPARISON: [facility] [place], CR, XR LUMBAR SPINE 2 OR 3 VIEWS, 05/01/2023, 9:29. FINDINGS: Image quality: Excellent. Alignment and Curvature: There is normal bony alignment. Bone Marrow: Marrow is of normal overall signal. No acute vertebral body compression fractures. Spinal Cord: Conus medullaris terminates at the L1 level. Visualized cord demonstrates normal signal and size. Paraspinous Soft Tissues: No paravertebral masses. There is a T2 hyperintense lesion at the superior pole of the right kidney suggesting a simple renal cyst which is incompletely characterized. T12-L1: Normal appearance. L1-L2: Normal appearance. L2-L3: Mild disc bulge. Mild facet ligamentum flavum hypertrophy. No canal stenosis. No foraminal stenosis. L3-L4: Moderate disc desiccation and height loss. Broad-based disc bulge. Mild facet ligamentum flavum hypertrophy. No canal stenosis. Mild left foraminal stenosis. No right foraminal narrowing. L4-L5: Moderate disc desiccation and height loss. Moderate facet ligamentum flavum hypertrophy. No canal stenosis. Mild left foraminal stenosis. There is a small posterior focal high-intensity zone. L5-S1: Mild disc desiccation. No canal stenosis. No foraminal stenosis. IMPRESSION: 1. Moderate disc desiccation, height loss, and posterior disc bulges at L3-4 and L4-5. No significant canal stenosis of the lumbar spine. 2. Mild foraminal narrowing at L3-4 and L4-5. 3. Posterior annular tear at L4-5. Dictated by: Tabatha Bourgeois M.D. on 05/08/2023 at 14:42 Approved by: Tabatha Bourgeois M.D. on 05/08/2023 at 14:45
== END ==
PROVIDERS: Referring Provider Physical Medicine & Rehabilitation; Visit Provider Physical Medicine & Rehabilitation
DX: M48.062 Spinal stenosis, lumbar region with neurogenic claudication (principal); M51.36 Other intervertebral disc degeneration, lumbar region
CPT/HCPCS: 72148